=== PATIENT | male | born 1980 | race Caucasian/White ===

== ENCOUNTER → 2018-11-20 | Outpatient (CLI) | payer OTHER ==
[~2018-11-20] MED LIST: ACET500 PO; BENADRYL25 MG; Excedrin Extra1 EACH PO; FAMO20 PO; Flonase 0.05% N16 GM; GABAPENTIN250 MG/5 M PO; Imitrex100 MG PO; OXYC5 PO
[2018-11-20 17:13] LABS: Performing Lab SYMBIODX; Test Name FLOW NODE
== END | disposition home or self-care (01) ==
LOC: PLD 16:06 → LAB SHORT 16:06
PROVIDERS: Otolaryngology
DX: C96.9 Malignant neoplasm of lymphoid, hematopoietic and related tissue, unspecified (principal)
CPT/HCPCS: 88173; 88184; 88185

== ENCOUNTER 2018-12-03 10:04 | Day surgery (SDC) | payer OTHER ==
[~2018-12-03] VITALS: Ht 154.9 cm; Wt 21.3 kg
[~2018-12-03 10:04] MED LIST changes: -ACET500 PO; -BENADRYL25 MG; -FAMO20 PO; -Flonase 0.05% N16 GM; -GABAPENTIN250 MG/5 M PO; -OXYC5 PO
[2018-12-03] MEDS ORDERED: BENADRYL25 MG (10:30)
[2018-12-03] MEDS ORDERED: Flonase 0.05% N16 GM (10:30)
--- NOTE | 2018-12-03 12:37 | NUR ---
12/03/18 1237 Maria E Garzon PT FEELS HE CAN GET UP AND GET DRESSED NOW. I WILL BEGIN DISCHARGE PROCESS.
== END 2018-12-03 12:47 | disposition home or self-care (01) ==
LOC: ORSCSDS 10:04
PROVIDERS: Otolaryngology
PROC: 0CJS8ZZ Inspection of Larynx, Via Natural or Artificial Opening Endoscopic (ICD-10-PCS; principal; 2018-12-03 11:45)
PROC: 0CTPXZZ Resection of Tonsils, External Approach (ICD-10-PCS; principal; 2018-12-03 11:45)
DX: C77.0 Secondary and unspecified malignant neoplasm of lymph nodes of head, face and neck (principal); J35.01 Chronic tonsillitis
CPT/HCPCS: 88304; J0330; J1100; J2250; J2405; J2704; J3010; J7120

== ENCOUNTER 2019-01-14 03:20 | Observation (INO) | payer OTHER ==
[~2019-01-14] VITALS: Ht 185.4 cm; Wt 72.6 kg
[~2019-01-14 03:20] MED LIST changes: +BENADRYL25 MG; +Flonase 0.05% N16 GM
[2019-01-14] MEDS ORDERED: ACET500 PO (04:17)
[2019-01-14] MEDS ORDERED: GABAPENTIN250 MG/5 M PO (04:17)
[2019-01-14] MEDS ORDERED: FAMO20 PO (04:18)
[2019-01-14] MEDS ORDERED: OXYC5 PO (04:18)
[2019-01-14 04:21] LABS: BASOPHILS ABSOLUTE AUTO 0.03 K/mm3 (0.00-0.23); BASOPHILS PERCENT AUTO 1 % (0-2); EOSINOPHILS ABSOLUTE AUTO 0.14 K/mm3 (0.00-0.68); EOSINOPHILS PERCENT AUTO 2 % (0-6); Hematocrit 41.4 % (37.0-53.0); Hemoglobin 14.2 g/dL (13.5-17.5); IMMATURE GRAN ABSOLUTE AUTO 0.01 K/mm3 (0.00-0.10); IMMATURE GRAN PERCENT AUTO 0 % (0-1); LYMPHOCYTES ABSOLUTE AUTO 2.28 K/mm3 (0.84-5.20); LYMPHOCYTES PERCENT AUTO 35 % (21-46); MONOCYTES ABSOLUTE AUTO 0.65 K/mm3 (0.16-1.47); MONOCYTES PERCENT AUTO 10 % (4-13); Mean Corpuscular HGB 29.2 pg (26.0-34.0); Mean Corpuscular HGB Conc 34.3 g/dL (31.5-36.5); Mean Corpuscular Volume 85 fL (80-100); NEUTROPHILS ABSOLUTE AUTO 3.48 K/mm3 (1.96-9.15); NEUTROPHILS PERCENT AUTO 53 % (41-73); Platelet Count 450 K/mm3 (150-400); RDW Coefficient Variation 11.5 % (11.7-14.2); RDW Standard Deviation 35.5 fL (35.1-46.3); Red Blood Cell Count 4.86 M/mm3 (4.30-5.90); White Blood Cell Count 6.59 K/mm3 (4.00-11.30)
--- NOTE | 2019-01-14 05:44 | NUR ---
Pt arrived, alert and oriented x4. Vital signs stable. Bleeding from surgical sight. Patient using own suctioning device at bedside. Complaints of mild pain. Ambulatory. awaiting orders.
--- NOTE | 2019-01-14 07:05 | NUR ---
recvd report from previous shift rn nadja. pt lying in bed watching tv, suction device and call light within reach, bed in lowest position, bed rails up x 2, pt a/o x 4, pleasant/cooperative.
--- NOTE | 2019-01-14 11:18 | NUR ---
dr lindsey rounding on pt
--- NOTE | 2019-01-14 12:32 | NUR ---
pt resting comfortably. notified hospitalist of consult at approx 1125. pt denies any need for pain medication at this time
--- NOTE | 2019-01-14 13:40 | NUR ---
speech therapy in for evaluation
--- NOTE | 2019-01-14 18:52 | NUR ---
SHIFT SUMMARY: PT REMAINED A/0 X 4, PLEAANT/COOPERATIVE, INDEPENDENT IN ROOM, NPO UNTIL FOLLOWING SWALLOW EVAL WITH ORDERS FOR THIN LIQUIDS. PT TOLERATING SLOWLY INGESTING THESE LIQUIDS. PT DENIES PAIN IN THE MOUTH OR THROAT. URINE OUTPUT >350 ML. NO BM THIS SHIFT. FAMILY VISITED X 1. SURGEON AND HOSPITALIST ROUNDED ON PT. SWALLOW EVAL AND NUTRITION CONSULT COMPLETED.
[2019-01-15 05:11] LABS: BASOPHILS ABSOLUTE AUTO 0.04 K/mm3 (0.00-0.23); BASOPHILS PERCENT AUTO 1 % (0-2); EOSINOPHILS ABSOLUTE AUTO 0.15 K/mm3 (0.00-0.68); EOSINOPHILS PERCENT AUTO 2 % (0-6); Hematocrit 38.3 % (37.0-53.0); Hemoglobin 13.4 g/dL (13.5-17.5); IMMATURE GRAN ABSOLUTE AUTO 0.02 K/mm3 (0.00-0.10); IMMATURE GRAN PERCENT AUTO 0 % (0-1); LYMPHOCYTES ABSOLUTE AUTO 2.07 K/mm3 (0.84-5.20); LYMPHOCYTES PERCENT AUTO 28 % (21-46); MONOCYTES ABSOLUTE AUTO 0.79 K/mm3 (0.16-1.47); MONOCYTES PERCENT AUTO 11 % (4-13); Mean Corpuscular HGB 28.9 pg (26.0-34.0); Mean Corpuscular Volume 83 fL (80-100); Mean Platelet Volume 9.2 fL (9.1-12.4); NEUTROPHILS ABSOLUTE AUTO 4.41 K/mm3 (1.96-9.15); NEUTROPHILS PERCENT AUTO 59 % (41-73); Platelet Count 454 K/mm3 (150-400); RDW Coefficient Variation 11.6 % (11.7-14.2); RDW Standard Deviation 34.8 fL (35.1-46.3); Red Blood Cell Count 4.63 M/mm3 (4.30-5.90); White Blood Cell Count 7.48 K/mm3 (4.00-11.30)
--- NOTE | 2019-01-15 07:41 | NUR ---
PT VSS T/O NIGHT. R SIDE OF NECK REMAINS SWOLLEN, PT DENIED SOB. NO ORAL BLEEDING NOTED, PT USING ORAL SX PRN. INCISION CDI, NO REDNESS/DRNG NOTED. PT LIYAH CLEAR LIQ PO, DOES REP ONGOING STRUGGLE W/SWALLOWING R/T RECENT TONGUE SURGERY. PT REP PAIN LIYAH /10. PT C/O FEELING ANXIOUS AND HAVING DIFFICULTY SLEEPING SINCE DX AND SURGERY. PT WAS ABLE TO SLEEP FOR SEVERAL HRS AFTER 1X DOSE OF ATIVAN GIVEN. SUPPORT AND THERAPEUTIC COMMUNICATION PROVIDED PRN T/O NIGHT. REPORT GIVEN TO DAY RN.
--- NOTE | 2019-01-15 10:19 | NUR ---
SPEECH AND DIETARY IN TO SEE PATIENT. PLAN IS TO REMAIN ON THIN LIQUIDS DUE TO PATIENT PREFERENCE. POSSIBLE PLAN TO DISCHARGE LATER TODAY.
== END 2019-01-15 12:18 | disposition home or self-care (01) ==
LOC: ER 03:20 → SURS 03:21
PROVIDERS: Emergency Medicine; Hospitalist; ADMIT Otolaryngology
DX: L76.22 Postprocedural hemorrhage of skin and subcutaneous tissue following other procedure (principal); G43.909 Migraine, unspecified, not intractable, without status migrainosus; Z85.810 Personal history of malignant neoplasm of tongue; Z88.5 Allergy status to narcotic agent; Z79.899 Other long term (current) drug therapy
CPT/HCPCS: 36415; 85025; 92526; 92610; 96361; 96374; 96375; 99284; G0378; J1170; J2060; J2405; J7120

== ENCOUNTER 2019-02-17 08:02 | Day surgery (SDC) | payer OTHER ==
[~2019-02-17] VITALS: Ht 185.4 cm; Wt 70.0 kg
[~2019-02-17 08:02] MED LIST changes: +ACET500 PO; +DIPH50 PO; +FAMO20 PO; +GABAPENTIN250 MG/5 M PO; +HYDROCODON-ACE118 ML PO; +OXYC5 PO; +PROM25 PO
--- NOTE | 2019-02-17 13:58 | NUR ---
PT AOX4. DENIES SEVERE PAIN. PT REPORTS MILD PAIN TO ABD AREA. PT DC'D WITH HANDWRITTEN RX FOR HYDROCODONE/APAP 7.5/325 SOLUTION FOR PAIN CONTROLL. PT ADVIED TO NOT TAKE NORCO AND EXCEDRIN DUE TO THE AMOUNT OF APAP IN BOTH MEDICATIONS. PT STATES HIS UNDERSTANDING. PT IS SCHEDULED WITH SUJATHA TOMORROW AT 1630 AND IS AWAITING A PHONE CALL FROM MARIE FOR A FOLLOW UP WITH DR. Murguia. IV DCD WITH CATH INTACT. DENIES ANY QUESTIONS OR CONCERNS. PT LEFT IN WHEELCHAIR WITH SISTER AND BROTHER IN LAW.
== END 2019-02-17 13:45 | disposition home or self-care (01) ==
LOC: MHTC 08:02
DX: C01 Malignant neoplasm of base of tongue (principal); G43.909 Migraine, unspecified, not intractable, without status migrainosus; Z88.5 Allergy status to narcotic agent; Z90.49 Acquired absence of other specified parts of digestive tract; Z79.899 Other long term (current) drug therapy
CPT/HCPCS: 99152; 99153; C1769; J1644; J2250; J3010; J7030; Q9967

== ENCOUNTER → 2019-12-11 | Outpatient (CLI) | payer OTHER ==
[2019-12-13 05:07] LABS: CHLAMYDIA TRACHOMATIS, NAA Negative (Negative); NEISSERIA GONORRHOEAE, NAA Negative (Negative)
== END | disposition home or self-care (01) ==
LOC: LAB 11:01 → LAB SHORT 11:01
PROVIDERS: Family Medicine
DX: Z11.59 Encounter for screening for other viral diseases (principal)
CPT/HCPCS: 87491; 87591

== ENCOUNTER → 2021-01-01 | Outpatient (CLI) | payer OTHER | END | disposition home or self-care (01) | LOC: LAB SHORT 19:39 → LAB 19:39 | DX: C01 Malignant neoplasm of base of tongue (principal) | CPT/HCPCS: 36415; 84443 ==